=== PATIENT | male | born 1975 | race Caucasian/White ===

== ENCOUNTER 2024-05-05 23:27 | Emergency (ER) | payer SELFPAY ==
[~2024-05-05] VITALS: Ht 165.1 cm; Wt 63.5 kg
[2024-05-05 23:37] VITALS: BP 123/80; PULSE 104; RESP 16; TEMP 97.7; O2SAT 100
[2024-05-06] MEDS ORDERED: ONDA-188 SL (00:37)
[2024-05-06] MEDS ORDERED: ACET-10509 PO (00:37)
[2024-05-06] MEDS ORDERED: FAMO-90 PO (00:37)
[2024-05-06] MEDS ORDERED: DICYCLOMINE HCL LIQUID 10 MG/5 ML UDC ONE (00:50)
[2024-05-06] MEDS ORDERED: ALUMINUM HYD/MAG/SIMETHICONE 30 ML UDC ONE (00:50)
[2024-05-06] MEDS: DICYCLOMINE HCL LIQUID 20 MG, ALUMINUM HYD/MAG/SIMETHICONE 30 ML, LIDOCAINE VISCOUS 2% ... PO ONE (00:55)
[2024-05-06] MEDS: ONDANSETRON 4 MG ODT PO ONE (00:56)
[2024-05-06] MEDS: ACETAMINOPHEN EXTRA STRENGTH 500 MG TAB PO ONE (00:56)
== END 2024-05-06 00:57 | disposition home or self-care (01) ==
LOC: MED 23:27
DX: K29.70 Gastritis, unspecified, without bleeding (principal); Z79.899 Other long term (current) drug therapy
CPT/HCPCS: 99284; Q0162